=== PATIENT | male | born 1985 | race Two or more races ===

== ENCOUNTER 2023-12-30 14:46 | Emergency (ER) | payer MEDICAID ==
[~2023-12-30] VITALS: Ht 185.4 cm; Wt 150.0 kg
[2023-12-30] MEDS ORDERED: SODIUM BICARB 8.4% 50Meq/50ml SYR INJ IV ONE (14:47)
[2023-12-30] MEDS ORDERED: InsuLIN REG 1unit/0.01ml Soln (100units/ml) IV ONE (15:00)
[2023-12-30] MEDS: SODIUM CHLORIDE 0.9% 1,000 ML IV ONE ×2 (15:19→16:30)
[2023-12-30] MEDS: SODIUM BICARB 8.4% 50Meq/50ml SYR Vial IV ONE (15:20)
[2023-12-30 15:48] LABS: Base Excess -4.5 mmol/L (-2.0-3.0)
[2023-12-30 15:55] VITALS: PULSE 127; RESP 43; O2SAT 98
[2023-12-30] MEDS: ONDANSETRON HCL 4 MG/2 ML VIAL IV ONE (16:05)
[2023-12-30 16:12] LABS: Eosinophils # (auto) 0.1 10 ^3/uL (0-0.8); Eosinophils % (auto) 0.5 % (0.0-7.0); Hemoglobin 12.2 g/dL (13.5-17.5)
[2023-12-30 16:17] VITALS: RESP 36
[2023-12-30 16:17] LABS: Basophils # (auto) 0.2 10 ^3/uL (0-0.2); Basophils % (auto) 0.7 % (0.0-2.0); Hematocrit 37.1 % (41.0-53.0); Lymphocytes # (auto) 2.1 10 ^3/uL (0.4-5.4); Lymphocytes % (auto) 9.1 % (10.0-50.0); Mean Corpuscular Hemoglobin 28.5 pg (28.0-32.0); Mean Corpuscular Volume 86.4 fL (80.0-100.0); Monocytes # (auto) 1.7 10 ^3/uL (0-1.3); Monocytes % (auto) 7.5 % (0.0-12.0); Neutrophils # (auto) 18.8 10 ^3/uL (1.6-8.6); Neutrophils % (auto) 82.2 % (37.0-80.0); Nucleated Red Blood Cells % 0.1 %; Platelet Count (auto) 172 10^3/uL (140-450); Red Blood Cells 4.29 10^6/uL (4.5-5.90); Red Cell Distribution Width 14.6 % (11.8-14.3); White Blood Cell 22.8 10^3/uL (4.4-10.8)
[2023-12-30 16:33] LABS: Alanine Aminotransferase 34 U/L (7-40); Albumin 3.1 g/dL (3.2-4.8); Alkaline Phosphatase 98 U/L (46-116); Anion Gap 14 (5-15); Aspartate Aminotransferase 56 U/L (13-40); Blood Urea Nitrogen 15 mg/dL (9-23); Calcium 8.4 mg/dL (8.7-10.4); Carbon Dioxide 18 mmol/L (20-30); Chloride 102 mmol/L (98-107); Creatine Kinase IFCC 18 U/L (46-171); Glucose 367 mg/dL (74-106); Lipase 38 U/L (12-53); Magnesium 2.1 mg/dL (1.6-2.6); Potassium 3.6 mmol/L (3.5-5.1); Sodium 134 mmol/L (136-145)
[2023-12-30 16:34] LABS: Bilirubin, Total 1.2 mg/dL (0.2-1.0); Total Protein 6.1 g/dL (5.7-8.2)
[2023-12-30 16:39] LABS: Lactic Acid w/Reflex 8.3 mmol/L (0.4-2.0)
[2023-12-30] MEDS ORDERED: ETOMIDATE (2MG/ML) 20ML VIAL IV ONE (16:42)
[2023-12-30] MEDS: metroNIDAZOLE 500MG/100ML 100 ML IV ONE (16:45)
[2023-12-30] MEDS ORDERED: EPINEPHrine HCL 250 ML IV ONE (16:46)
[2023-12-30] MEDS: EPINEPHrine HCL 250 ML IV ONE (16:52)
[2023-12-30] MEDS ORDERED: EPINEPHrine HCL 1 MG/10 ML SYRG ONE ×4 (16:53→17:16)
[2023-12-30] MEDS: HYDROCORTISONE SOD SUCC 100 MG/2ML INJ VIAL IV ONE (16:54)
[2023-12-30] MEDS ORDERED: HYDROCORTISONE SOD SUCC 100 MG/2ML INJ VIAL ONE (16:55)
[2023-12-30 17:03] VITALS: BP 111/36; PULSE 124; O2SAT 46
[2023-12-30] MEDS: CIPROFLOXACIN 400MG/200ML 200 ML IV ONE (17:08)
[2023-12-30 19:19] LABS: Urine Bacteria FEW /hpf (None Seen); Urine Blood 2+ /uL (Negative); Urine Clarity Ex.Turbid (Clear); Urine Color Light-Orange (Yellow); Urine Mucus FEW (None Seen); Urine Protein, UAD 2+ (Negative); Urine Specific Gravity 1.019 (1.001-1.035); Urine Sperm PRESENT /hpf (None Seen); Urine Urobilinogen Normal (Negative); Urine WBC 23 /hpf (0 - 3); Urine WBC Clumps PRESENT /hpf (None Seen)
[2023-12-30 19:21] LABS: Amphetamine Screen, Urine Neg (NEGATIVE); Barbiturate Scree,Urine Neg (NEGATIVE); Benzodiazephine Screen, Urine Neg (NEGATIVE); Cannabinoid Screen, Urine Neg (NEGATIVE); Cocaine Screen, Urine Neg (NEGATIVE); Opiate Scree,Urine Neg (NEGATIVE); Phencyclidine Screen, Urine Neg (NEGATIVE)
== END 2023-12-30 17:30 ==
LOC: EDBD 14:46 → ER 14:46
DX: A41.9 Sepsis, unspecified organism (principal); I95.9 Hypotension, unspecified; E86.0 Dehydration; R00.0 Tachycardia, unspecified; D72.829 Elevated white blood cell count, unspecified; R74.02 Elevation of levels of lactic acid dehydrogenase [LDH]; R19.7 Diarrhea, unspecified; I10 Essential (primary) hypertension
CPT/HCPCS: 31500; 36415; 36430; 36600; 71045; 80053; 80307; 81001; 82010; 82550; 82805; 83605; 83690; 83735; 84100; 84484; 85025; 86850; 86900; 86901; 86920; 87040; 87077; 87186; 96361; 96365; 96367; 96375; 99285; J0171; J0744; J1720; J1815; J2405; J3490; J7030; P9016; 99152